=== PATIENT | female | born 1995 | race Caucasian/White ===

== ENCOUNTER 2017-10-16 15:33 | Emergency (ER) | payer OTHER ==
[~2017-10-16] VITALS: Ht 160 cm; Wt 109.7 kg
[~2017-10-16 15:33] MED LIST: BACTRIM,SEPT1 TABLET PO; CAMILA0.35 MG PO; EXPECTA PRENAT1 EACH PO; IBUPROFEN800 MG PO; KEFLEX500 MG PO; MOTRIN600 MG PO; NAPROSYN500 MG PO; PROZAC20 MG PO; SILVADENE20 GM TP; SILVER SULFADIA50 GM TP; SPRINTEC1 EACH PO; XULANE PATCH1 EACH TD; ZOFRAN ODT4 MG PO; birth control patch
[2017-10-16 15:52] LABS: HEMATOCRIT 34.3 % (36.0-46.0); HEMOGLOBIN 11.6 G/DL (11.9-15.5); MCH 29.2 PG (29.0-34.0); MCHC 33.8 G/DL (30.0-36.0); MCV 86.4 FL (83-99); PLATELET COUNT 262 K/uL (156-360); RBC DIS.WIDTH-CV 14.3 % (11.8-14.6); RBC DIS.WIDTH-SD 44.9 % (39-53); RED BLOOD COUNT 3.97 M/uL (3.80-5.20); WHITE BLOOD COUNT 11.3 K/uL (4.1-10.2)
[2017-10-16 16:07] LABS: ALBUMIN 3.7 g/dL (3.2-4.8); CHLORIDE 107 mEq/L (99-109); POTASSIUM 3.7 mEq/L (3.7-5.4); SODIUM 137 mEq/L (136-147)
[2017-10-16 16:12] LABS: TOTAL BILIRUBIN 0.4 mg/dL (0.0-1.0)
[2017-10-16 16:13] LABS: CREATININE 0.6 mg/dL (0.6-1.3); GFR ESTIMATE (CALCULATED) > 59 mL/min/
[2017-10-16 16:15] LABS: AST (GOT) 12 IU/L (2-34)
[2017-10-16 16:22] LABS: QUANTITATIVE HCG 14005.4 MIU/ML
[2017-10-16 16:30] LABS: GLUCOSE 84 mg/dL (70-99)
[2017-10-16 16:34] LABS: ALKALINE PHOSPHATASE 86 IU/L (3-129)
[2017-10-16 16:35] LABS: UREA NITROGEN (BUN) 6 mg/dL (9-23)
[2017-10-16 16:37] LABS: ALT (GPT) 11 IU/L (3-49)
[2017-10-16 17:14] LABS: LIPASE 15 U/L (1.0-51.0)
[2017-10-16 17:30] LABS: APPEARANCE SL.HAZY ((CLEAR)); BILIRUBIN NEGATIVE; BLOOD NEGATIVE; COLOR YELLOW ((YELLOW)); GLUCOSE (STRIP) NEGATIVE; KETONES 80; LEUKOCYTES NEGATIVE; NITRITE NEGATIVE; PROTEIN (STRIP) 30; SPECIFIC GRAVITY 1.027 (1.000-1.030); UROBILINOGEN 0.2 MG/DL (0.2-1.0)
[2017-10-16 17:38] LABS: BACTERIA RARE /HPF; CALCIUM OXALATE CRYSTALS 1+ /HPF; EPITHELIAL CELLS RARE /HPF; MUCUS TRACE /LPF; UCUL ADDED? NO; WHITE BLOOD CELLS 0-5 /HPF (0-5)
[2017-10-16 19:39] VITALS: BP 121/71
== END 2017-10-16 19:40 | disposition home or self-care (01) ==
LOC: EME 15:33
DX: O21.9 Vomiting of pregnancy, unspecified (principal); O99.89 Other specified diseases and conditions complicating pregnancy, childbirth and the puerperium; R19.7 Diarrhea, unspecified; O99.342 Other mental disorders complicating pregnancy, second trimester; F43.10 Post-traumatic stress disorder, unspecified; Z3A.19 19 weeks gestation of pregnancy
CPT/HCPCS: 76805; 80053; 81003; 83690; 84702; 85027; 99281; 99284; J2405; J7030

== ENCOUNTER 2017-11-15 23:38 | Emergency (ER) | payer OTHER ==
[~2017-11-15] VITALS: Ht 160 cm; Wt 114.1 kg
[2017-11-16] MEDS ORDERED: KEFLEX500 MG PO (02:39)
[2017-11-16] MEDS ORDERED: ERYTHROMYC1 APPLICAT BOTH EYES (02:41)
[2017-11-16 02:57] VITALS: BP 104/68
== END 2017-11-16 02:58 | disposition home or self-care (01) ==
LOC: EME 23:38
DX: O99.89 Other specified diseases and conditions complicating pregnancy, childbirth and the puerperium (principal); H04.321 Acute dacryocystitis of right lacrimal passage; H10.9 Unspecified conjunctivitis; Z3A.22 22 weeks gestation of pregnancy
CPT/HCPCS: 99281; 99284

== ENCOUNTER 2017-11-26 20:55 | Outpatient (CLI) | payer OTHER ==
[~2017-11-26 20:55] MED LIST changes: +ERYTHROMYC1 APPLICAT BOTH EYES
[2017-11-26 21:22] VITALS: BP 120/56
[2017-11-26] MEDS ORDERED: PRENATAL TABLE1 EAC3 PO (21:26)
== END 2017-11-26 21:40 | disposition home or self-care (01) ==
LOC: 5WEST → LDRP-OP 20:55 → 2WEST 20:56 → LDRP-OP 04-18 09:47
DX: O36.8120 Decreased fetal movements, second trimester, not applicable or unspecified (principal); O99.212 Obesity complicating pregnancy, second trimester; E66.01 Morbid (severe) obesity due to excess calories; Z68.41 Body mass index [BMI] 40.0-44.9, adult; O99.282 Endocrine, nutritional and metabolic diseases complicating pregnancy, second trimester; E55.9 Vitamin D deficiency, unspecified; O99.342 Other mental disorders complicating pregnancy, second trimester; F41.9 Anxiety disorder, unspecified; F32.9 Major depressive disorder, single episode, unspecified; O22.42 Hemorrhoids in pregnancy, second trimester; Z3A.23 23 weeks gestation of pregnancy
CPT/HCPCS: 59025; G0378

== ENCOUNTER 2017-12-21 16:22 | Outpatient (CLI) | payer OTHER ==
[~2017-12-21 16:22] MED LIST changes: +PRENATAL TABLE1 EAC3 PO
[2017-12-21 17:01] VITALS: BP 101/52
[2017-12-21 17:45] LABS: SOURCE SWAB
[2017-12-21 18:01] LABS: APPEARANCE SL.HAZY ((CLEAR)); BILIRUBIN NEGATIVE; BLOOD NEGATIVE; COLOR YELLOW ((YELLOW)); GLUCOSE (STRIP) NEGATIVE; KETONES 5; LEUKOCYTES NEGATIVE; NITRITE NEGATIVE; PROTEIN (STRIP) NEGATIVE; SPECIFIC GRAVITY 1.019 (1.000-1.030); UROBILINOGEN 0.2 MG/DL (0.2-1.0)
[2017-12-21 18:04] LABS: BACTERIA RARE /HPF; EPITHELIAL CELLS 1+ /HPF; MUCUS TRACE /LPF; RED BLOOD CELLS 0-5 /HPF (0-5); UCUL ADDED? NO; WHITE BLOOD CELLS 0-5 /HPF (0-5)
[2017-12-21 18:14] LABS: AMPHETAMINE NEGATIVE (500 ng/mL); BARBITURATES NEGATIVE (200 ng/mL); BENZODIAZEPINES NEGATIVE (150 ng/mL); BUPRENORPHINE NEGATIVE (10 ng/mL); COCAINE NEGATIVE (150 ng/mL); METHADONE NEGATIVE (200 ng/mL); METHAMPHETAMINE NEGATIVE (500 ng/mL); OPIATES (MORPHINE) NEGATIVE (100 ng/mL); OXYCODONE NEGATIVE (100 ng/mL); PHENCYCLIDINE NEGATIVE (25 ng/mL); PROPOXYPHENE NEGATIVE (300 ng/mL); THC CANNABINOIDS NEGATIVE (50 ng/mL); TRICYCLIC ANTIDEPRESSANTS NEGATIVE (300 ng/mL)
[2017-12-21 21:20] LABS: CANDIDA DNA PROBE NEGATIVE; GARDNERELLA DNA PROBE NEGATIVE; TRICHOMONAS DNA PROBE NEGATIVE
== END 2017-12-21 20:00 | disposition home or self-care (01) ==
LOC: LDRP-OP 16:22 → 2WEST 16:23 → LDRP-OP 04-18 22:34
PROVIDERS: Advanced Practice Midwife; Obstetrics & Gynecology
DX: O26.892 Other specified pregnancy related conditions, second trimester (principal); R10.9 Unspecified abdominal pain; R10.2 Pelvic and perineal pain; M54.9 Dorsalgia, unspecified; Z3A.27 27 weeks gestation of pregnancy
CPT/HCPCS: 59025; 81003; 82731; 87086; 87480; 87491; 87510; 87591; 87660; G0378